=== PATIENT | male | born 1965 | race Caucasian/White ===

== ENCOUNTER 2020-08-05 13:42 | Inpatient (IN) | payer OTHER ==
[~2020-08-05] VITALS: Ht 175.3 cm; Wt 68.4 kg
[~2020-08-05 13:42] MED LIST: ACCUNEB SO1.25 MG/1; BENZTROPINE MES1 MG PO; INVEGA6 MG PO; PREDNISONE 10 M10 MG PO; VISTARIL 25 MG25 M1 PO; [UNRECOGNIZED DRUG - OTHER] PO
[2020-08-05] MEDS ORDERED: PROAIR HFA8.5 GM INH (17:01)
[2020-08-05] MEDS ORDERED: PREDNISONE 20 M20 MG PO (17:02)
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
[2020-08-06 07:37] LABS: ABSOLUTE NEUTROPHILS 4.7 thou/uL (1.4-8.2); BASOPHILS 0.6 % (0.0-2.0); EOSINOPHILS 0.8 % (0.0-3.0); HEMATOCRIT 38.3 % (42.0-52.0); HEMOGLOBIN 12.8 gm/dL (14.0-18.0); LYMPHOCYTES 14.9 % (24.0-44.0); MCH 31.3 pg (26.0-34.0); MCHC 33.5 g/dL (28.0-37.0); MCV 93.7 fL (80.0-100.0); MONOCYTES 11.4 % (1.0-8.0); PLATELET COUNT 528 thou/uL (150-400); POLYS 72.3 % (36.0-66.0); RBC 4.09 mil/uL (4.50-6.00); RDW 13.8 % (10.5-14.5); WBC 6.5 thou/uL (4.0-11.0)
[2020-08-06 07:51] LABS: ALBUMIN 3.2 g/dL (3.4-5.0); CALCIUM 9.1 mg/dL (8.5-10.1); CREATININE 0.7 mg/dL (0.7-1.3); POTASSIUM 4.5 mmol/L (3.5-5.1); TOTAL BILIRUBIN 0.4 mg/dL (0.2-1.0); TOTAL PROTEIN 7.5 g/dL (6.4-8.2)
[2020-08-06 15:11] LABS: FOLIC ACID 11.8 ng/mL (8.6-58.9)
--- NOTE | 2020-08-06 18:09 | NUR ---
0700 ASSUMED CARE OF PATIENT, PATIENT IN BED AT THAT TIME. PATIENT AMB WITH STEADY GAIT. PATIENT CALM ON INITIAL ASSESSMENT. BRUISING AND STITCHES NOTED TO FACE. NO C/O PAIN. PATIENT DENIED SI/HI, NO DEPRESSION, NO ANXIETY. 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 PATIENT FOUND DIGGING IN TRASH, PATIENT ASKED NOT TO DO SO. PATIENT REFUSING MEDICATION AND STATES "I WILL NOT TAKE THAT MEDICATION. PATIENT ALSO REFUSING NICOTINE PATCH YET ASKING TO GO OUT TO SMOKE. WHEN ASKING QUESTIONS TO PATIENT, PATIENT CHANGES THE SUBJECT WITH A FLIGHT OF IDEAS UNRELATED TO THE QUESTION. WILL CONTINUE TO OBSERVE
[2020-08-06 19:48] VITALS: BP 137/87
--- NOTE | 2020-08-07 03:48 | NUR ---
Assumed care on 08/06/20 @ 1900. [facility] Drawing on provided coloring pages, also on paper sacks and the name tag outside of his room. Refused P.O. Tylenol for face and head pain. Refused topical Bactraicin ointment. Refused P.O. Haldol 2mg, however this nurse provided it in apple juice which he accepted. @ 03:45, came out of his room asking for food. Explained the time frame for breakfast, @ 0800, at which point he used obscenities to express himself, stomped back to his room, slammed the door and pounded on the chavira of his room. Patient was able to calm himself and as of this writing has de-escalated and modified his own behavior.
[2020-08-07 09:31] VITALS: BP 124/74
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
[2020-08-07 19:46] VITALS: BP 109/74
--- NOTE | 2020-08-07 20:33 | NUR ---
0700 ASSUMED CARE OF PATIENT, PATIENT IN BED AT THAT TIME. PATIENT ABM WITH STEADY GAIT. PATIENT ATE 100% OF ALL MEALS. PACES HALLS AT TIMES. DENIED SI/HI. NO C/O PAIN. REFUSES PO MEDICATION. PATIENT WAS UPSET TAKING OF SHIRT STMPING TO ROOM YELLING AND CURSING X 2. 1935 RECIEVED ORDER FOR IM MED HALDOL 5MG AND ATIVAN 1 MG IM GIVEN AT 1500 WITH SECURITY STANDING BY. IM GIVEN TO LEFT DELTOID. PATIENT CONTINUED TO REFUSE PO MED.
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
[2020-08-08 01:06] LABS: HIV ANTIBODY Non Reactive (Non Reactive)
[2020-08-08 04:38] VITALS: BP 109/74
--- NOTE | 2020-08-08 05:02 | NUR ---
Assumed care on 08/07/20 @ 1900, alternately in bed and ambulating ad juan josé throughout the mileu. In bed when meds were offered. Refused P.O. Haldol and refused to allow bactracin to be applied to facial scar. Continued to sleep overnight. Bed in low position, will continue to montior as per unit protocol for safety and comfort.
[2020-08-08 09:27] VITALS: BP 112/64
[2020-08-08 10:41] VITALS: BP 112/64
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
[2020-08-08 19:40] VITALS: BP 128/83
[2020-08-08 20:06] LABS: SYPHILIS AB Non Reactive (Non Reactive)
[2020-08-08 22:43] VITALS: BP 128/83
--- NOTE | 2020-08-09 01:39 | NUR ---
Assumed care on 08/08/20 @ 1900, moves about with a steady gait. Alternately walks the halls and uses coloring pencils to draw on adult coloring pages. Cooperated with assessment and compliant with medications. Relayed the information that he wanted to put his topical antibiotic ointment on his scar himself. Provided him with a glove and allowed him to do so. A&Ox2 with confusion flight of ideas and difficulty focusing. ABD normoactive bowel sounds, BM today, HRRR, reports that he has a pacemaker. Wheezing noted to lower right field, course breath sounds present in the left field. Seated in a halima chair in his room sleeping with eyes closed, respirations even and unlabored.
[2020-08-09 09:09] VITALS: BP 130/83
[2020-08-09 19:43] VITALS: BP 124/71
--- NOTE | 2020-08-10 03:35 | NUR ---
PATIENT HAD A FLAT AFFECT, POOR EYE CONTACT,POOR GROOMING AND HYGIENE. PATIENT ENCOURAGED FLUIDS. PATIENT REFUSED CREAM ON HIS LEFT EYE. PATIENT TOOK HS MEDS. PATIENT IN BED ASLEEP AT THIS TIME BREATHING REGULAR AND UNLABOURED.
[2020-08-10 08:57] VITALS: BP 127/69
[2020-08-10 19:19] VITALS: BP 138/70
--- NOTE | 2020-08-10 19:36 | NUR ---
0700 ASSUMED CARE OF PATIENT, PATIENT UP AMB IN SAN AT THAT TIME. PATIENT CALM AND COOPERATIVE. NO C/O PAIN. PATIENT EATS 100% OF ALL MEALS. MEDICATIONS TAKEN WHOLE WITHOUT DIFFICULTY. BS ACTIVE, LS WHEEZING NOTED.
--- NOTE | 2020-08-11 04:30 | NUR ---
PT AMBULATING INDEPENDENTLY AND IS TOLERATING WELL. DENIES PAIN. FREQUENT OBSERVATION.
[2020-08-11 08:57] VITALS: BP 108/71
--- NOTE | 2020-08-11 17:45 | NUR ---
SW met with Pt today to gather information about his family. Pt provided SW with some family information. Pt was able to provide a brother's name and number, Carlo Lopez . HIs mother's name Татьяна Cuellar. Pt stated his mother was still living but did not know her address or phone number. Pt also provided the name of his adult sons, Ryne Lopze, Dionisio Lopez, Jessica Reeves, and Landry Lopez. He provide the address of [address] [place] [address] as an address for his children. Pt did not have a phone number for any of his children. Sw did call the number for Pt's brother, Carlo Lopez. YENIFER called several times each time a woman answering the phone. When SW would ask for Carlo the woman would act as though she could not here SW talking and repeat " Hello". SW called another time and stated" I am not a solicitor, I am from a hospital calling for Carlo". The woman hung up the phone. YENIFER called back and a man answered the phone stating " I am not intrested, you have the wrong number". SW did not call back. YENIFER will continue to follow
--- NOTE | 2020-08-11 18:43 | NUR ---
0700 ASSUMED CARE OF PATIENT, PATIENT IN DAYROOM DRINKING COFFEE AT THAT TIME. PATIENT CALM AND COOPERATIVE. MEDICATIONS TAKEN WHOLE. SLIGHT WHEEZING NOTED. C/O SORE THROAT, LOZENGE GIVEN. RT HERE TO GIVE PRN BREATHING TREATMENT PATIENT STATES "ITS GIVING ME A WILKES". NO OUT BURST TODAY NOTED. PATIENT ONLY RECIEVED PARTIAL TX. PATIENT C/O WILKES WILL GIVE TYLENOL.
[2020-08-11 19:34] VITALS: BP 139/74
--- NOTE | 2020-08-12 02:28 | NUR ---
ASSESSED PT EVENING MEDS GIVEN WHOLE WITH WATER. REFUSED TYELNOL STATED 'WILL SLEEP IT OFF" UP AD LU. PT RESTING WELL IN BED. NO FURTHER SIGNS OF DISCOMFORT WILL CONT TO MONITOR.
[2020-08-12 08:59] VITALS: BP 136/80
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
[2020-08-12 20:00] VITALS: BP 155/78
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
--- NOTE | 2020-08-13 11:10 | NUR ---
Followup: remains on [facility] unit. On soft diet, double portions. Tolerates well, eats 100% of meals consistently. Had 2 different wt measurements of 149 vs 143 lb over 1 day. Will follow trends. Low nutrition risk
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
--- NOTE | 2020-08-13 19:15 | NUR ---
PATIENT HAS BEEN UP, AND OUT ON THE UNIT, AMBULATE WITH STEADY GAIT. PATIENT TOOK ALL MEDICATION WHOLE WITHOUT DIFFICULTY, HE IS EATING MEALS, AND DRINKING FLUID WELL, HE EATS DOUBLE PORTION SOFT DIET. PATIENT DENIES SUICIDAL/HOMICIDAL IDEATION, HE RATES BOTH DEPRESSION/ANXIETY 8/10. PATIENT DENIES HAVING PHYSICAL PAIN. LEFT FACIAL SURGICAL INCISION SITE LOOKS CLEAN, AND DRY, NO S&S OF INFECTION NOTED, AREA HEALING WELL. REDNESS NOTED TO LEFT EYE. NO AGITATION, OR IRRITABLE BEHAVIOR NOTED AT THIS TIME. AFFECT IS FLAT/BLUNTED, MOOD IS DEPRESSION. NO SIGN OF ACUTE DISTRESS NOTED AT THIS TIME, WILL MONITOR FOR SAFETY.
[2020-08-14 04:17] VITALS: BP 137/64
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
[2020-08-14 09:40] VITALS: BP 126/65
[2020-08-14 09:46] VITALS: BP 126/65
--- NOTE | 2020-08-14 09:57 | NUR ---
Assumed pt care at 0700. pt was alert and oriented x4. pt took meds whole. Assessments completed VSS. pt ambulates with a steady gait. denies si/hi, denies pain at this time. There is no sign of acute distress noted upon assessments. pt was calm and co-operative with care. No behaviors noted at this time. will continue to monitor pt.
[2020-08-14 19:15] VITALS: BP 131/71
--- NOTE | 2020-08-15 00:52 | NUR ---
Alert and orientated x 4, calm and cooperative when initially assessed. Denies SI/HI. States he is concerned about his 4 sons--has not had recent contact d/t being homeless. Also states he is tired. When entered room for evening meds he became irritable and angry raising voice stating he was not on medication when he came and he can't understand why he is on medication now. States haldol is making his legs jump and keeping him awake t/o night. Got up from bed angrily and then stated he needed to pee. Told that haldol was an antipsychotic. He went to bathroom and complied with washing his hands to apply bacitracin to face. Then took haldol and went back to bed. Breath sounds clear. Reg HR auscultated. Color pink with brisk capillary refill and palpable peripheral pulses. Independent with voiding, yellow urine per toilet. Active bowel sounds over soft, flat abdomen. States he had BM earlier this AM. Healing laceration below L eye, no s/o infection. Bacitracin applied by pt. Fading bruising on face. Currently sleeping without s/o distress.
[2020-08-15 02:15] VITALS: BP 150/97
[2020-08-15 09:54] VITALS: BP 115/63
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
[2020-08-15 10:12] VITALS: BP 115/63
--- NOTE | 2020-08-15 14:24 | NUR ---
08/11/20 Dr. Fisher emailed Administration concerning guardianship on the Pt. 08/11/20 recieved and email from Danya Abdi with attached questionairre to complete on Pt. 08/12/20 TELMA emailed completed questionairre back to Danya 08/14/20 recieved petition via email from Danya 08/15/20 TELMA reviewed petition,scanned and emailed copy to Danya. Along with Pt's psychiatric evaluation. placed copy in the record. Telma will continue to follow up
[2020-08-15 19:32] VITALS: BP 139/79
--- NOTE | 2020-08-15 23:12 | NUR ---
Alert and orientated X4. Calm, cooperative and compliant. States he has no pain, denies WILKES. States he is concerned about sons. Breath sounds clear. Reg HR auscultated. Color pink with brisk capillary refill and palpable peripheral pulses. Independent with voiding, yellow urine per toilet. States he had BM this AM. Active bowel sounds over soft, rounded abdomen. Ambulating with regular, steady gait. Currently sleeping without s/o distress.
[2020-08-16 08:26] VITALS: BP 133/87
[2020-08-16 09:59] VITALS: BP 133/87
--- NOTE | 2020-08-16 12:09 | NUR ---
Assumed pt care at 0700. Pt was alert and oriented x4. Took meds whole, no difficulty noted. Assessments completed, vss. Ambulates with a steady gait. Denies si/hi. There is no c/o pain at this time. There is no sign of acute distress noted upon assessments. pt is calm and co-operative with care. At this time pt is eating lunch. Will continue to Monitor pt.
[2020-08-16 20:00] VITALS: BP 142/85
--- NOTE | 2020-08-16 23:13 | NUR ---
PT SLEEPING IN ROOM UPON ARRIVAL TO SHIFT. PT DID GO TO DAY ROOM AND ASKED FOR ICE CREAM AND PROVIDED. PT COMPLIANT WITH MEDS. PT DID LATER IN THE EVENING GO TO HIS ROOM AND WAS YELLING LOUDLY IN HIS ROOM THAT HIS SISTER IN LAW WAS TAKING SOMETHING AND THAT SOMEONE ELSE WAS TO LEAVE. PT DID STOP YELLING ON HIS OWN AND WAS LAYING IN HIS BED WITH HIS EYES CLOSED HE WAS SCREAMING. PT PLACED HIMSELF ON THE FLOOR MATTRESS PROVIDED TO SLEEP. STEADY GAIT. HUNTER SKIN.
[2020-08-17 09:43] VITALS: BP 122/80
[2020-08-17 12:27] VITALS: BP 122/80
--- NOTE | 2020-08-17 12:49 | NUR ---
ASSUMED CARE AT 0700 THIS MORNING. PT. PACING A BOUT IN THE DINING ROOM. HE IS PLEASANT. HE TOOK HIS MORNING MEDICATIONS WITHOUT PROBLEMS NOTED. HE WAS NOTED SLEEPING IN HIS ROOM ON A MAT ON THE FLOOR. AFTER LUNCH HE WAS IN HIS ROOM YELLING. WHEN THIS RN APPROACHED HIM HE STATED, "MY SON CHRISTINE JUST WALKED BY BUT HE ISN'T TALKING TO ME." WHEN THIS RN ASKED HIM NOT TO YELL, HE STATED, "FUCK THIS [facility], FUCK THIS PLACE, FUCK THE DR." HE WAS CONTINUING TO YELL. MELIA MCDERMOTT NP CAME IN TO SEE WHAT THE COMOTION WAS ABOUT. THIS RN GOT A PRN HALDOL 5 MG PO AND GAVE TO HIM FOR AGITATION. MELIA MCDERMOTT NP WROTE AN ORDER FOR IM IF HE COULD NOT CALM DOWN. NO FURTHER AGITATION, YELLING NOTED TO THIS POINT NOTED. WILL CONTINUE TO MONITOR.
[2020-08-17 19:20] VITALS: BP 124/70
[2020-08-17 20:45] VITALS: BP 124/70
--- NOTE | 2020-08-18 02:43 | NUR ---
PATIENT HAS BEEN IN HIS ROOM MOST OF NIGHT. HE STARTED OUT LAYING ON A MATTRESS ON THE FLOOR. HE DENIES PAIN. HE TOOK HIS HS MED OF HALDOL 7.5MG PO WITH WATER WITHOUT ISSUE. PATIENT STILL HAS HEALING LACERATION AROUND LEFT EYE. NO SIGNS OF INFECTION NOTED. PATIENT LATER CAME OUT QUICKLY TO CHECK THE TIME IN DAYROOM AND HURRIED BACK TO BED. HE CALLED OUT A COUPLE OF TIMES BUT HE WAS WANTING HIS BED ADJUSTED. HELPED PATIENT POSITION HIMSELF IN BED AND PATIENT IS BACK TO BED. HE IS IRITABLE AND IMPULSIVE. ROUTINE ROUNDS TO ASSESS SAFETY AND STATUS OF PATIENT.
[2020-08-18 10:30] VITALS: BP 130/69
[2020-08-18 15:06] VITALS: BP 130/69
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
[2020-08-18 19:48] VITALS: BP 152/69
[2020-08-18 20:20] VITALS: BP 152/69
--- NOTE | 2020-08-19 02:10 | NUR ---
PATIENT HAS BEEN IN ROOM ALL NIGHT EXCEPT FOR COMING OUT FOR ICE WATER AT 0200. PATIENT HAD FIRST DOSE OF SEROQUEL AT 1800 08/18. HE WAS FINE WHEN I ASSESSED HIM AT 193. WHEN I TOOK HIS HS MEDS IN AROUND 2044 PATIENT AWOKE AND BEGAN SWEATING PERFUSELY. HIS TEMP WAS 98.7. RECHECKED LATER WHEN THIS HAPPENED AGAIN AND IT WAS 97.0. PATIENT DENIED PAIN OR CHEST PAIN. PULSE WAS GOOD AT 88. PATIENT HAS CHANGED HIS SHIRT TWICE TONIGHT D/T DRENCHING IT IN SWEAT. THE ROOM TEMP WAS NORMAL WHEN THIS HAPPENED THE FIRST TIME. THEN WHEN IT HAPPENED AGAIN AROUND 199 THE ROOM DID FEEL WARM BUT THE PATIENT BECAME VERY UPSET AND AGITATED WHEN I WENT TO CHECK THE TEMP OR TRY TO LOWER THE TEMP. IT IS PROBABLY 75 DEGREES IN THERE NOW. PATIENT BELIEVES IT IS THE SEROQUEL. I CALLED AND NOTIFIED DR BARON WHEN THIS WAS FIRST NOTICED BEFORE I GAVE HIM HIS HS MEDS. INSTRUCTED TO CONTINUE TO MONITOR AND ASSESS FOR ANY NEW FINDINGS. NO NEW FINDINGS. PATIENT IS RESTING IN BED WITH HIS EYES CLOSED AT THIS TIME. BED IN LOW POSITION. ROUTINE ROUNDS TO ASSESS SAFETY AND STATUS OF PATIENT. DENIES PAIN. DENIES SI/HI/AVH AT THIS TIME. CONTINUING TO MONITOR.
--- NOTE | 2020-08-19 02:30 | NUR ---
NOTED THAT AT 2100 WHEN MEDS GIVEN TO PATIENT THAT HIS LEFT EYE BLOOD VESSELS WERE BROKEN AND EYE VERY RED. NO DRAINAGE. DENIES DISCOMFORT. LEFT EYE LACERATION IS HEALING AND FRAME AND SCRAP CRUSHER. NO SIGNS OF INFECTION. NO REDNESS OR DRAINAGE.
--- NOTE | 2020-08-19 09:26 | NUR ---
0700 ASSUME CARE OF PATIENT, PATIENT IN DAYROOM AT THAT TIME. AMB WITH STEADY GAIT, TAKES MEDICATION WHOLE WITHOUT DIFFICULTY. C/O MEDICATION HE IS TAKING STATING "I DID NOT TAKE MEDICATION BEFORE AND DON'T WANT TO ANYMORE". PATIENT MUMBLING TO SELF HE IS UPSET ABOUT BEING HERE. PATIENT DOES NOT WANT TO TALK ABOUT IT AT THIS MOMENT. VS 128/78, 89, 17, 97.5, 97%. NO C/O PAIN, LS CLEAR, BS ACTIVE. PATIENT DOES NOT ATTEND GROUP THIS AM. RESTING IN BED AT THIS TIME.
[2020-08-19 09:43] VITALS: BP 128/78
--- NOTE | 2020-08-19 11:04 | NUR ---
Followup: eating very well, 100% all meals and wts are stable. Low nutrition risk
--- NOTE | 2020-08-19 15:51 | NUR ---
MEDICAL CENTER MANAGER met with pt 1;1 late this morning to touch base on how he is doing, and filling his unstructured time on unit as he does not attend groups. Pt expressed frustration stemming from feeling "claustrophobic" on locked unit. He explains further that he has never taken medication and feels as if he is having poor side effects from what he is taking here. MEDICAL CENTER MANAGER and pt spoke about positive coping skills, structuring time, and mainting some social activity while on unit. Pt still frustrated but excited when offered radio to his room for afternoon. Pt assisted MEDICAL CENTER MANAGER in tuning radio to "rock n roll". Throughout afternoon pt could be heard whistling and singing along to music and expresses content having a radio in his room.
--- NOTE | 2020-08-19 16:54 | NUR ---
YENIFER met with Pt in his room concerning his behaviors. Pt stated he was upset about the medications he was on. Pt stated the medications are making him "dehydrated and thirsty". Pt stated the medications are " messing with my head" and he feels "clusterphobic" being on the unit. Pt believes he was only suppose to go to a medical unit and not a psychiatric unit. SW attempted tp explain to the Pt his dx, medications, and guardianship. Pt began to become visibly upset, getting out of the lying position, pacing the floor, raising his voice, yelling at times. SW assured the Pt DR. Cheng would be told his concerns. Pt evenually ended the conversation by walking out of the room saying " Ok bye". Dr. Cheng and YENIFER later spoke with the Pt together. Pt continued to be aggitated. Pt informed about the dementia dx. Pt stated, " what is that, like alzheimers, I aint got no alzheimers". " I aint on no meth or drinking, I don't do that stuff, that why I don't like [place] everything is about meth meth meth". Pt continued to escalate and ramble. Pt got up again and left the room. SW will continue to follow.
[2020-08-19 19:36] VITALS: BP 129/80
[2020-08-19 20:52] VITALS: BP 143/76
--- NOTE | 2020-08-20 05:37 | NUR ---
08-19-20 CARE TRANSFERRED 1899. LATER PT AAOX4, VSS RR EVEN AND NONLABORED ON RA. PT DENIES PAIN AND SI/HI. PT HAS BEEN CALM AND COOPERATIVE. ZERO S/S OF ACUTE DISTRESS, PT WILL CONTINUE TO BE MONITOR PER [facility] PROTOCOL.
--- NOTE | 2020-08-20 10:46 | NUR ---
Pt knocked on PROFESSOR OF VOICE office door requesting to listen to radio, "for at least 5 minutes." Alberto was accepting of encouragement to participate in 0900 RT group before he would be given opportunity to listen to radio in his room. He did not attend group. During tx team this AM, Alberto's lack of socialization and presence in milieu/groups was discussed, along with using radio as motivation and reward for improved participation. Following meeting, pt again requested radio. Alberto and PROFESSOR OF VOICE discussed a goal of attending at minimum one group per day for the remainder of the week, before he would be given the opportunity to listen to radio. Alberto was accepting of this, asked for reminders of when group times were, and agreed he would attend one per day.
--- NOTE | 2020-08-20 15:48 | NUR ---
YENIFER recieved an email from Danya Abdi with the notice of hearing attached. Guardianship hearing has been scheduled for 09/30/2020 @9895. The Pt was provided a copy and YENIFER told Pt the date and time of the hearing. A copy was placed in the chart.
--- NOTE | 2020-08-20 16:31 | NUR ---
0700 ASSUMED CARE OF PATIENT, PATIENT UP IN DAYROOM AT THAT TIME. PATIENT CALM AND COOPERATIVE. VS 129/76, 87, 18, 97.4, 98%. PATIENT OUT TO DAYROOM FOR BREAKFAST THEN RETURNS TO ROOM SPENDING MOST OF THE TIME IN ROOM. PATIENT ENJOYING MUSIC IN ROOM. MEDICATION TAKEN WHOLE WITHOUT DIFFICULTY. 1620 PATIENT ASKS VICE PRESIDENT OF MARKETING TO DIAL A PHONE NUMBER AND COMMUNICATES WITH HIS OLDER BROTHER APOLINAR [phone]. PATIENT ASKS VICE PRESIDENT OF MARKETING TO GIVE PHONE NUMBER FROM HERE SO BROTHER CAN CALL HIM. VICE PRESIDENT OF MARKETING SPOKE WITH APOLINAR AND PER PATIENTS REQUEST PATIENTS CODE NUMBER GIVEN TO BROTHER. PATIENT HAPPY TALKING WITH BROTHER IN ROOM AT THIS TIME.
[2020-08-20 19:29] VITALS: BP 124/62
--- NOTE | 2020-08-21 06:40 | NUR ---
08-21-20 CARE TRANSFERRED 1899. LATER PT RESTING IN BUNK SUPINE WITH EYES CLOSED, AAOX4, VSS, RR EVEN AND NONLABORED ON RA. PT DENIES PAIN AND SI/HI. PT HAS REMAINED CALM AND COOPERATIVE THROUGHOUT SHIFT. ZERO S/S OF ACUTE DISTRESS NOTED, PT WILL CONTINUE TO BE MONITOR PER [facility] PROTOCOL.
[2020-08-21 07:58] VITALS: BP 132/80
[2020-08-21 19:38] VITALS: BP 129/67
--- NOTE | 2020-08-22 04:33 | NUR ---
Assumed care on 08/21/20 @ 19:15, in room in bed at that time, medications and assessment provided, at first pt fussed about taking medications, then when explained what each of (2meds) purpose was for, he angrily sat up and said he would take them. Swollowed meds whole. Swelling to left eye is improving. Returned to sleep. Will continue to monitor for safety and comfort as per unit protocol.
[2020-08-22 09:37] VITALS: BP 115/75
[2020-08-22 12:59] VITALS: BP 115/75
--- NOTE | 2020-08-22 13:06 | NUR ---
ASSUMED CARE AT 0700 THIS MORNING. PT. COMES OUT FOR MEALS, THEN RETREATS TO HIS ROOM AND IS SECLUSIVE. HE CONTINUES TO VERBALIZE SOME VISUAL HALLUCINATIONS. UP TO THIS MOMENT IN TIME, HE HAS NOT HAD ANY OUTBURSTS. HE CONTINUES TO SEEK COFFEE NUMBEROUS TIMES THROUGHOUT THE DAY. HE TOOK HIS MEDICATIONS WITHOUT PROBLEMS NOTED. WILL CONTINUE TO MONITOR.
[2020-08-22 19:40] VITALS: BP 127/79
[2020-08-23 01:29] VITALS: BP 127/79
--- NOTE | 2020-08-23 06:27 | NUR ---
08/22/201914 ISOLATES IN HIS ROOM. WALKS OUT TO THE DAY ROOM WITH HIS SHIRT OFF ASKING FOR A CLEAN SHIRT. COMPLIANT WITH MEDICATION ADMINISTRATION. TYLENOL 650 MG PROVIDED FOR GENERAL PAIN AND HEADACHE 10/02. RETIRED TO SLEEP @ AN EARLY NOC. SLEPT 9 HOURS OVERNIGHT.
[2020-08-23 09:27] VITALS: BP 108/65
[2020-08-23 09:55] VITALS: BP 108/65
[2020-08-23 10:10] VITALS: BP 108/65
[2020-08-23 11:33] LABS: GLYCOHEMOGLOBIN (HGB A1C) 5.4
--- NOTE | 2020-08-23 12:14 | NUR ---
1215 RESUMMED CARE FROM OVERNIGHT SHIFT THIS AM, PATIENT IN ROOM LYING IN BED QUIET. PATIENT ALERT ORIENTED TIMES 4 PATIENT CALM QUIET COOPERATIVE I LET PATIENT KNOW HE NEEDED TO PARTICIPATE IN GROUPS. I TOLD HIM IF HE WAS NOT COMPLIANT HIS ROOM WOULD BE LOCKED. PATIENTS ABDOMEN SOFT BOWEL SOUNDS PATIENTS LUNGS CLEAR. PATIENT DENIES SI/HI/AH/VH AT PRESENT PATIENTS AFFECT IS FLAT. WILL CONTINUE TO MONITOR PATIENT FOR SAFETY AND BEHAVIORS.
[2020-08-23 19:57] VITALS: BP 139/72
--- NOTE | 2020-08-24 04:32 | NUR ---
WITHDRAWN TO ROOM THIS PM-IS NOT VISIBLE IN DAYROOM AT SHIFT CHANGE AND REFUSED TO COME OUT WHEN PROMPTED FOR HS SNACK-MINIMALLY VERBAL DURING PM ASSESSMENT/1'1 INTERACTION -SAT UP IN BED-TOOK MEDS AND PROMPTLY LAID BACK DOWN AND CLOSED EYES-DENIES PAIN WHEN ASKED-REFUSES PHYSICAL ASSESSMENT STATING "NOT NOW" WILL CONTINUE TO MONITOR
[2020-08-24 10:04] VITALS: BP 121/69
--- NOTE | 2020-08-24 18:38 | NUR ---
0700 ASSUMED CARE OF PATIENT, PATIENT AMB IN SAN AT THAT TIME. PATIENT CALM AND COOPERATIVE IN AM. PATIENT DOES NOT PARTICIPATE IN GROUPS TODAY. ASKS FOR FOOD MULTIPLE TIMES THROUGHOUT THE DAY. STARTS TO GET MAD AFTER ASKING FOR TRAYS BEING HELD FOR OTHER PATIENT. PATIENT YELLS "IF YOUR GONNA THROW IT AWAY CAN JUST HAVE IT". RECOVERY ENGINEER EXPLAINED TO PT AND PATIENT WALKS AWAY UPSET. ISOLATES SELF IN ROOM MOST OF THE TIME AND WALKS / RUNS AROUND SQUARE OF NURSES STATION. PATIENT STARTS YELLING FOR A CIGARETTE, RECOVERY ENGINEER OFFERS NICTINE GUM AND PATIENT AGREES GUM GIVEN AT 1826.
[2020-08-24 18:59] VITALS: BP 130/84
--- NOTE | 2020-08-25 00:51 | NUR ---
PATIENT WAS CALM AND PLEASANT AT BEGINNING OF SHIFT. HE FELL ASLEEP IN HIS BED AROUND 2030. HE TOOK HIS MEDS WHOLE WITH WATER AND NO DIFFICULTY. THEN AROUND 0030 PATIENT AWOKE AND CAME OUT TO DINING ROOM TO GET WATER. HE WAS MUMBLING UNDER HIS BREATH AND STATING THAT THERE IS A WAR GOING ON. HE GOT IRRITATED WHEN I TOLD HIM NOT TO TAKE A NEW CUP AND FILL IT WITH WATER AND DRINK IT AND THEN SIT IT BACK DOWN BY THE WATER DISPENSER. I ASKED HIM TO TAKE HIS CUP WITH HIM OR THROW IT AWAY. EXPLAINED I DIDN'T WANT OTHERS TO JAVASCRIPT DEVELOPER HIS USED CUPS AND DRINK FROM THEM. HE WENT BACK TO HIS ROOM. HE LAID DOWN ON A MAT ON THE FLOOR AND FELL BACK TO SLEEP. DENIES PAIN/SI/HI/AVH. HE IS A/0X3-4. ROUTINE ROUNDS TO ASSESS SAFETY AND STATUS OF PATIENT.
--- NOTE | 2020-08-25 09:27 | NUR ---
0700 ASSUMED CARE OF PATIENT, PATIENT UP AMB IN SAN. PATIENT AMB WITH STEADY GAIT. PATIENT NOTED PACING IN DAYROOM AND IN SAN. PATIENT MUMBLING TO SELF STATING "IF YOU JUST GET ME A CAB AND TAKE ME HOME I WILL BE FINE". AFTER BREAKFAST PATIENT TO ROOM AND LAYS DOWN. REC THERAPIST TO ROOM TO INVITE PATIENT TO GROUP, PATIENT STARTS YELLING AND CURSING HOW HE WANTS OUT OF HERE. PATIENT TO DAYROOM STOMPING. PATIENT DISRUPTIVE IN DAYROOM DURING GROUP AND ASKED TO LEAVE. PATIENT TO SAN AND SITS ON FLOOR INFRONT OF ROOM. WILL CONTINUE TO OBSERVE
[2020-08-25 09:30] VITALS: BP 135/80
[2020-08-25 20:10] VITALS: BP 133/79
[2020-08-25 21:42] VITALS: BP 133/79
--- NOTE | 2020-08-26 01:26 | NUR ---
PATIENT IN BED RELAXING. NO SIGN OF DISCOMFORT NOTED. TOOK HIS SCHEDULED MEDS BUT REFUSED HIS BACITRACIN OINTMENT TO FACIAL INCISON. NURSE EDUCATE ON THE IMPORTANCE OF OINTMENT. HE DENIES PAINS. BS ACTIVE X 4 QUAD. BED IN A LOW POSITION NO SI/ AVH/ NOTED. VITAL SIGN ARE WITHIN NORMAL RANGE. CALM AND CO-OPERATIVE AND ROUTINE ROUNDS ARE ONGOING. CONTINUE TO MONITOR.
[2020-08-26 09:08] VITALS: BP 125/80
--- NOTE | 2020-08-26 11:20 | NUR ---
Nutrition followup: Pt continues to eat very well, 90-100% of meals. Weights relatively stable, 144-149#. BM 08/25. Did not visit as pt had just recieved IM shot due to behaviors. Low nutrition risk.
--- NOTE | 2020-08-26 15:42 | NUR ---
RT Progress Note- Over the last week Alberto and RT team have set goal of improving participation as pt had not been in attendance to any recreational therapy group since his admission. Alberto showed moderate level of attendance, but continues to avoid active participation. Alberto often offers physical complaints (WILKES, dizziness, etc) as to why he is unable to participate. On days of improved group attendance, pt has been given the radio to utilize in his room. Alberto has displayed some anger outburts as a result of required attendance. PATTERN GATER will continue to encourage attendance and improvement of participation throughout the next week.
--- NOTE | 2020-08-26 17:34 | NUR ---
0700 ASSUMED CARE OF PATIENT, PATIENT UP AMB IN SAN. PATIENT PACING SAN AND DAYROOM. ATE 100% OF BREAKFAST. MEDICATION TAKEN WHOLE WITHOUT DIFFICULTY. DENIES PAIN, LEFT EYES SWOLLEN. PATIENT REFUSES TO USE OINTMENT TO EYE. DENIES SI/HI, LS CLEAR, BS ACTIVE. PATIENT IN GROUP THIS AM, GET UP AND LEAVES GROUP. PATIENT FOUND LYING IN SAN AND ASKED TO GET UP. PATIENT PACES SAN FOR A FEW MIN THEN TO DAYROOM AND LAYS UNDER TABLE. PATIENT ASKED AGAIN TO GET UP FROM FLOOR, PATIENT GETS UP AND YELLS AND GOES TO ROOM POUNDING ON DOOR. SECURITY CALLED DR BARON ON FLOOR AND ORDERS IM MEDICATION. SECURITY, DR BARON AND STAFF AT PATIENT SIDE. DIRECTOR WEB ADMINISTERED IM INJECTION OF 20MG OF GEODON TO RIGHT DELTOID AT 1012 PATIENT CALM AND COOPERATIVE AT THAT TIME. PATIENT TO ROOM AND LAYS DOWN. PATIENT CALM THE REST OF THE DAY. WILL CONTINUE TO OBSERVE.
--- NOTE | 2020-08-26 18:00 | NUR ---
YENIFER recieved a VM from Bill Strange, . In the VM Bill stated he has an appointment to come see the Pt on 09/04/2020 @1300. YENIFER returned the call leaving a VM to confirm date and time.
[2020-08-26 19:47] VITALS: BP 127/80
[2020-08-26 19:53] VITALS: BP 127/80
--- NOTE | 2020-08-27 05:00 | NUR ---
Assumed care on 08/26/20 @ 1915, A&Ox3-4. Noted to be cooperative with care his evening. HRRR. Lungs CTA bilat. ABD N x 4Q. Ambulating with a steady gait, Santacruz score of 15. Denies SI/HI, Denies AH/VH. Allowed bactracin to be applied to healing scar on left zygomatic process. Compliant with medication administration, and pleasant affect noted. Will continue to monitor as per unit protocol for safety and comfort.
[2020-08-27 08:00] VITALS: BP 130/78
--- NOTE | 2020-08-27 10:28 | NUR ---
PATIENT CARE ASSUMED AT 0700 - UP IN DINING SAN. AFFECT FLAT AND UNEMOTIONAL AND MOOD DETACHED. ADVISED PATIENT IMPORTANCE TO PARTICIPATE IN GROUPS AND TOW BAR DRIVER ANGER OUTBURSTS. APOLOGIZED TO THIS INFORMATION DIRECTOR FOR BEHAVIOR EXHIBITED YESTERDAY. EXPLAINED THAT ADHERRANCE TO PROTOCOLS AND GUIDELINES IS FOR HIS BENEFIT. SEEMED RESTLESS THIS MORNING - PACING AROUND UNIT - QUESTIONED EXTRA TRAY OF FOOD - STATES MEALS NOT FILLING AND CONSTANTLY HUNGRY. ASKED FOR ICE CREAM AND EXPLAINED THAT WOULD ESTRADA HIS REQUEST. EXPLAINED THAT APPROPRIATE BEHAVIOR CRITICAL AND STAFF TRYING TO WORK WITH HIM - HELPING HIM FIND PLACEMENT - HE AGREED TO REACHING OUT THIS STAFF MEMBER WHEN FEELING LOSS OF CONTROL AND ANGER. COMPLIANT WITH MEDICATIONS AND OINTMENT PLACED ON HIS LEFT CHEEK BELOW EYE. STATED NO DISCOMFORT - LUNGS CLEAR ON AUSCULTATION, HEART RATE STRONG AND STEADY AND SKIN INTACT - WARM AND DRY. NOTED EASILY AGITATED WHEN NEEDS OR WANTS NOT MET BUT COMMUNICATED MY CONCERNS WITH THIS BEHAVIOR AND AGREED TO SUBDUE HIS OUTBURSTS. AFTER GROUP LAID DOWN ON HIS BED AND TOOK A NAP.
--- NOTE | 2020-08-27 15:01 | NUR ---
D/T erratic behavior, room searched for meds/contraband per team request. Nothing found.
[2020-08-27 19:35] VITALS: BP 119/88
[2020-08-27 23:56] VITALS: BP 119/88
--- NOTE | 2020-08-28 00:48 | NUR ---
Assumed care on 08/26/20 @ 1915. Ambulating with a steady gait and a Santacruz score of 15. Lying in bed upon assessment wearing black athletic shoes. HRRR, Lungs CTA bilat, ABD N BS x4Q. Continent of B&B. Cooperative with assessment and cares. Denies depression, anxiety, SI/HI AH/VH. Returned to bed after taking meds. Went to sleep early in the evening. Bed in low position, will continue to monitor for safety and comfort.
[2020-08-28 07:31] VITALS: BP 127/75
--- NOTE | 2020-08-28 19:25 | NUR ---
0700 ASSUMED CARE OF PATIENT, PATIENT UP AMB IN SAN WITH STEADY GAIT. PATIENT CALM AND COOPERATIVE TODAY. NO C/O PAIN DENIES SI/HI. LS CLEAR, BS ACTIVE. VS STABLE. MEDICATIONS TAKEN WHOLE. PATIENT SPENT MOST OF HIS TIME IN ROOM. DID NOT ATTEND GROUPS TODAY.
[2020-08-28 19:49] VITALS: BP 127/73
[2020-08-28 21:55] VITALS: BP 127/73
--- NOTE | 2020-08-28 22:11 | NUR ---
HYPERVERBAL WITH PRESSURED SPEECH DURING PM MED PASS,1;PM ASSESSMENT. WHEN APPROACHED WAS SITTING IN BED IN ROOM-UPON STAFF ENTERING ROOM IMMEDIATLY BEGINS A LONG RAMBLING DIALOGUE -STOPPING AFTER 5-10 MINUTES TO FALL BACK DRAMATICALLY AGAINST PILLOW STATING "OH I JUST GET SO SHORT OF BREATH AND EXHAUSTED TALKING ABOUT IT"CONVERSATION CIRCUMSTANTIAL-EXPRESSING ANGER WITH FAMILY,HOSPITALS, DOCTORS ETC FOR "FORCING ME TO TAKE MEDICINE WHEN I DON'T NEED IT" NOTED TO BE TAKING SHALLOW RAPID BREATHS DURING CONVERSATION AND STATES SHORT OF BREATH "ALL THE TIME"PREOCCUPIED WITH MEDICATION IN PARTICULAR LITHIUM AND SPOKE FOR APPROX 15 MINUTES ABOUT WHY SHE DID NOT WANT TO TAKE AND SIDE EFFECTS THAT SHE IS [id number] ABOUT. DID TAKE ALL HS MEDS WITH THE EXCEPTION OF LITHIUM
--- NOTE | 2020-08-28 22:41 | NUR ---
PATIENT IN BED, ALERT AND ORIENTED, ABLE TO VERBALIZE NEEDS.HE DENIES,SI HI, AVH AND NO DISCOMFORT NOTED AT THIS TIME. HE GETS OUT OF BED TWICE TO GET SOME WATER AND SANCK WAS OFFERED ONCE.LUNGS ARE CLEARED ON AUSCULTATION. NO CONCERN NOTED. TOLERATED HIS MEDS WHOLE.BED IN LOW POSITION AND LOCK, CALL LIGHT AT REACH AND AREA IS FREE OF OBATACLES. PT SPOKE TO HIS BROTHER THIS SHIFT.CONTINUE CARE AND MONITOR PER ORDER. .
[2020-08-29 10:38] VITALS: BP 135/69
[2020-08-29 14:26] VITALS: BP 135/69
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
[2020-08-29 19:47] VITALS: BP 130/74
--- NOTE | 2020-08-30 00:40 | NUR ---
APPROACHED IN ROOM WITH HS MEDICATIONS AT APPROX 2019-REFUSES PHYSICAL ASSESSMENT. DID RESPOND ABRUPTLY TO 1-2 QUESTIONS ASKED FOR ASSESSMENT BEFORE ROLING OVER AND STATING "I DON'T KNOW I ANSWERED ALL THIS STUFF ALREADY"WHEN GIVEN HS MEDICATION LOOKS AT CUP OF MEDS AND BEGAN TO YELL LOUDLY "I'M NOT TAKING THIS MUCH-I TAKE TOO MANY GODDAMM PILLS ALREADY. DID TAKE HALDOL/PRAZOSIN BUT REFUSES VISTARIL. WILL CONTINUE TO MONITOR
[2020-08-30 09:25] VITALS: BP 139/71
[2020-08-30 09:43] LABS: ABSOLUTE NEUTROPHILS 4.9 thou/uL (1.4-8.2); BASOPHILS 0.9 % (0.0-2.0); EOSINOPHILS 2.5 % (0.0-3.0); HEMATOCRIT 39.3 % (42.0-52.0); HEMOGLOBIN 13.1 gm/dL (14.0-18.0); LYMPHOCYTES 15.6 % (24.0-44.0); MCH 31.4 pg (26.0-34.0); MCHC 33.3 g/dL (28.0-37.0); MCV 94.5 fL (80.0-100.0); PLATELET COUNT 304 thou/uL (150-400); RBC 4.16 mil/uL (4.50-6.00); RDW 14.4 % (10.5-14.5); WBC 6.8 thou/uL (4.0-11.0)
[2020-08-30 09:52] LABS: CALCIUM 8.9 mg/dL (8.5-10.1); CREATININE 0.8 mg/dL (0.7-1.3); POTASSIUM 4.1 mmol/L (3.5-5.1)
[2020-08-30 10:09] VITALS: BP 139/71
--- NOTE | 2020-08-30 12:02 | NUR ---
1200 RESUMMED CARE FROM OVERNIGHT SHIFT THIS AM, PATIENT IN ROOM RESTING QUIETLY. PATIENT ALERT ORIENTED TIMES 4 PATIENT ATE BREAKFAST TOOK MEDICATION WITHOUT INCIDENCE. PATIENTS ABDOMEN SOFT BOWEL SOUNDS PRESENT PATIENTS LUNGS CLEAR. PATIENT COMES TO GROUP BUT DOES NOT PARTICIPATE IN GROUP AND I REMINDED HIM OF HIS ROOM LOCKOUT. PATIENT DENIES SI/HI/AH/VH AT PRESENT PATIENT HAS NOT DISPLAYED ANY BEHAVIORS THIS SHIFT. WILL CONTINUE TO MONITOR PATIENT FOR SAFETY AND BEHAVIORS.
--- NOTE | 2020-08-30 16:41 | NUR ---
Nurse Sydnee asked SW to meetwith Pt concerning getting labs drawn. SW met with the Pt in his room. SW talked to Pt about the need for labs. Pt started to get upset asking " Why am I on the psych meds, I don't need them". SW encouraged Pt to allow labs to be taken. Pt eventually allowed the tech to draw blood. Pt them asked for ice cream. SW informe he had to wait until group was over. Pt was able to wait calmly until group finished to get snack. YENIFER will continue to follow
--- NOTE | 2020-08-30 22:02 | NUR ---
PT ISOLATING IN ROOM. PT SLEEPING IN HIS CLOTHES. POOR EYE CONTACT WHEN TALKING WITH NURSE. PT STATED HE IS NOT SUPPOSED TO TAKE ANY PSYCHOTIC MEDICATIONS. PT WAS LOUD AND IRRITABLE WHEN EXPRESSING THIS. PT HOWEVER DID TAKE ALL OF HIS MEDICATIONS. PT REMAINED IN HIS ROOM ALL NIGHT.
[2020-08-31 09:19] VITALS: BP 110/77
--- NOTE | 2020-08-31 15:53 | NUR ---
ASSUMED CARE AT 0710. PT FREQUENTLY WALKS BACK AND FORTH FROM ROOM TO DAY ROOM AND BACK. PT COMES TO DAY ROOM FOR MEALS AND MEDICATION AND SNACKS BUT GOES BACK TO ROOM SOON HE IS FINISHED. PT DOES NOT SOCIALIZE WITH OTHER PATIENTS AND SPEAKS VERY FEW WORDS TO NURSING. PT SLEEPS ALOT IN BETWEEN MEALS. PT'S APPEARANCE IS VERY DISHEVELED AND REMAINS IN HIS STREET CLOTHES.
[2020-08-31 19:36] VITALS: BP 136/72
[2020-08-31 21:28] VITALS: BP 136/72
--- NOTE | 2020-09-01 02:39 | NUR ---
PATINET IN BED RESTING WITH EYES CLOSED. ALERT AND ORIENTED. DENIES ANY PAINS,SI,AVH,HI. MOOD IS PLEASANT AND CALM. AMBULATES WITHOUT ANY DIFFICULTY. BS ACTIVE X 4 QUAD. NO OEDEMA NOTED TO BLE AND ARMS.LUNGS ARE DIMINISHED. HE SCREAMED THAT MEDICATION CAUSED HIM DRYNESS OF THE MOUTH AND REQUESTED FOR WATER.HE TOOK HIS MEDS WHOLE WITHOUT ANY ISSUES AND WENT BACK TO SLEEP. NURSE PROVIDED PATIENT WITH A PITCHER OF WATER AT BED SIDE. BED IS IN LOW POSITON. NO SKIN ISSUES OR WOUNDS NOTED THIS SHIFT. HE IS CONTINENT OF BOWEL AND BLADDER WITH LBM ON 08/31/20. CONTINUE CARE AND MONITOR.
[2020-09-01 10:08] VITALS: BP 126/68
[2020-09-01 14:46] VITALS: BP 126/68
[2020-09-01 19:54] VITALS: BP 134/85
--- NOTE | 2020-09-01 19:57 | NUR ---
Assumed pt care at 0700. pt was alert and oriented x4. pt was calm and co-operative. took meds whole, no difficulty noted. Denies si/hi denies pain. Assessments completed, vss. No si/hi of acute distress upon assessments. AMbulates with a steady gait. WILL CONTINUE TO MONITOR PT.
[2020-09-01 22:00] VITALS: BP 134/85
--- NOTE | 2020-09-02 06:19 | NUR ---
PATIENT CARE WAS ASSUMED AT 1900. PT CALM, ALERT AND ORIENTED RESTING IN BED.HE DENIES ANY DISCOMFORT, SI/AVH,HI. VSS AND NO SOA NOTED.SCHEDULED HS MEDICATIONS WERE GIVEN WITHOUT ANY ISSUES. NO SKIN ISSUES NOTED. BS ACTIVE X ABD SOFT AND NONE TENDER.PT IS CONTINENT OF BOWEL AND BLADDER. BED IN LOW POSITION. PT AMBULATES WITHOUT ANY ISSUES. STAFF CONTINUE TO ROUND Q12 MINUTES.CONTINUE CARE
--- NOTE | 2020-09-02 09:43 | NUR ---
Assumed pt care at 0700. pt was alert and oriented x4. pt took meds whole, no difficulty. Assessments completed, vss. pt Denies si/hi. There is no c/o pain at this time. Ambulates with a steady gait. No sign of acute distress noted upon assessments. pt refused to participate in group. At approximately 0920 pt was lying down on the hallway. DR Fisher was notified. Pt went into the day room and lay on the floor again. At this time pt is currently laying on the floor in the day room. Will continue to monitor.
[2020-09-02 10:00] VITALS: BP 119/77
--- NOTE | 2020-09-02 10:53 | NUR ---
Nutrition followup: pt continues on [facility] unit eating 80-100% of meals, double portions on soft diet, missing dentition. Weights stable within 144-149#. On vitamin D supplementation for deficiency. A1C WNL. Followup weekly.
[2020-09-02 13:23] VITALS: BP 119/77
[2020-09-02 19:30] VITALS: BP 134/71
[2020-09-02 21:00] VITALS: BP 134/71
--- NOTE | 2020-09-03 01:16 | NUR ---
PT CARE WAS RESUME [id number]. HE IS ALERT AND ORINTED AND ABLE TO VERBALIZE PAINS. HE IS SLEEPING IN BED WITHOUT ANY ISSUE NOTED AT THIS TIME. HE TOOK HIS MEDICATIONS WHOLE WITHOUT ANY ISSUE. NO SIGN OF PAINS AND DISCOMFORT NOTED. HE DENIES, SI, AVH, HI. BS ACTIVE X4 QUAD. ABD IS SOFT AND NONE TENDER. BED IS LOCK AND IN A LOW POSITION. PT IS VERY CALM AT THIS TIME. CONTINUE CARE AND MONITOR.
[2020-09-03 07:50] VITALS: BP 109/70
--- NOTE | 2020-09-03 09:45 | NUR ---
PATIENT WAS UP, AND OUT ON THE UNIT, WENT BACK TO BED AFTER BREAKAST. MORNING MEDICATIOM GIVEN AT BED SIDE, WELL TOLERATED. PATIENT DECLILNE MORNING GROUP, BECAME VERY ANGRY, HE I ON ROOM LOCK-OUT DURING GROUP/MEALS. HE BECAME LOUD DUE TO STAFF ENCOURAGING HIM TO ATTENT GROUP. PATIENT DECIDED TO SIT ON THE FLOOR OUSIDE HIS ROOM, LATER GOT UP, WITH LOTS OF ENCOURAGEMENT FROM THIS BYPRODUCTS SUPERVISOR, AND SECURITY JUN , HE STATES "I BENNIE'T GO TO GROUP, IT MESSESS WITH MY BRAIN. THE NOISE, I BENNIE'T STAND THE NOISE". HE DID GOT OFF THE FLOOR, SAT IN DAY ROOM FOR A LITTELE WHILE, THEN GOT UP, PACED AROUND THE NURSES STATION, AND COMES BACK TO SIT. PATIENT DENIES SUICIDAL/HOMICIDAL IDEATION, HE DENIES DEPRESSION, AND ANXIETY, DENIES AUDITORY/VISUAL HALLUCINATION. PATIENT RATES GENERALIZED PAIN 4/10, DECLINE TO TAKE MEDICATION FOR PAIN "I DON'T WANT NOTHING". AFFECT IS SAD/FLAT, MOOD IS ANGRY. NO SIGN OF ACUTE DISTRESS NOTED AT THIS TIME, WILL CONTINUE TO ENOUCRAGE GROUP THEAPY, AND MONITOR FOR SAFETY.
--- NOTE | 2020-09-03 10:56 | NUR ---
RT Progress Note- Alberto continues to isolate to his room each day. At this time he remains compliant with his group/meal room lockout and presents to the day room when requested to do so. He does not participate however and most often chooses to lay on the floor while present. He also is observed to take very brisk walks frequently during times when he is asked to participate socially. Alberto's frustration tolerance continues to be poor. 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 ENTRY ANALYST presented to pt's room while pt was lying in his bed. Pt appeared annoyed that ENTRY ANALYST had come to talk to him and was short and guarded during discussion. ENTRY ANALYST explained roll of recreational therapist and that RT's use leisure as a source of coping rather than medication (pt has stated in the past that he chooses not to disclose information in fear that he will be given more medication in return.) It was explained to him the discussion had in tx team and suggested that pt come up with activities he would like to do so that a plan could be created in place of group attendance. Pt stated, "socializing has never been my thing. It makes me nervous. I don't want people to see me." When pressed to identify activities he would enjoy and asked to take a look at RT supply cabinet, pt became increasingly irritated, sat up, and walked out of room in a rick while mumbling to himself.
[2020-09-03 19:33] VITALS: BP 130/83
[2020-09-03 22:51] VITALS: BP 130/83
--- NOTE | 2020-09-04 00:32 | NUR ---
Assumed care on 09/03/20 @ 1900, in bed, awakened to voice and awake, oriented x3-4. Cooperated with assessment, HRRR, Lungs CTA bilat. Healing scar on left zygomatic process noted. Compliant with medication administration. Denies SI/HI. Denies anxiety and depression. Returned to bed, bed in low position, will conitnue to monitor as per unit protocol for safety and comfort.
[2020-09-04 09:00] VITALS: BP 125/78
[2020-09-04 12:27] VITALS: BP 125/78
--- NOTE | 2020-09-04 19:39 | NUR ---
Assumed pt care at 0700. pt was alert and oriented x4. pt was calm and co-operative with care. pt took meds whole, no difficulty noted. pt denies si/hi, denies pain. Ambulates with a steady gait. Assessments completed, vss. No sign of acute distress noted upon assessments. PT REFUSED his [address] Fisher notified. Meds administered as ordered. Will continue to monitor.
[2020-09-04 20:15] VITALS: BP 118/66
--- NOTE | 2020-09-05 02:31 | NUR ---
APPROACHED IN ROOM AT APPROX 2044 FOR HS MEDS AND PM ASSESSMENT. UPON ENTRY TO ROOM IS NOTED TO BE RESTING QUIETLY WITH EYES CLOSED-EASILY AROUSABLE TO VERBAL STIMULI. SAT UP AND TOOK MEDS IMMEDIATLY LAYING BACK DOWN TURNING AWAY FROM STAFF. DYSPHORIC MOOD. DENIES SI/SH/HI. DENIES PHYSICAL PAIN/DISCOMFORT. INITALLY REFUSED TO ALLOW PHYSICAL EXAM IE HEART,LUNG,BOWEL SOUNDS- BUT STAFF P[REPARING TO EXIT ROOMS SITS UP AND STATES "OK JUST DO IT" BS ACTIVE X4. LUNGS DIMINISHED-DENIES SHORTNESS OF BREATH OR COUGH. ABDOMEN [id number] REPORTS BOWEL MOVEMENT "TODAY OR YESTERDAY"
[2020-09-05 09:11] VITALS: BP 117/73
--- NOTE | 2020-09-05 15:10 | NUR ---
Alert and orientated X4. Running in hallways this AM, slowed to a walk when asked. Marked hand tremors noted during assessment, ceased when talking with pt. Denies SI/HI. Significant swelling beneath L eye, no s/o infection. Walks with fast, regular gait. Breath sounds clear. Reg HR auscultated. Color pink with brisk capillary refill and palpable peripheral pulses. Independent with voiding, yellow urine observed in toilet. Active bowel sounds over soft, rounded abdomen. States he had BM early this AM. Laying in bed sleeping at start of both groups, asked to come out of his room and participate--complied. For afternoon group he returned immediately to his room stating that he had to use the bathroom. Went back to room several minutes later and he was lying on his side appearing to sleep. Again returned to group and he quickly complied. No s/o distress. As soon as group was over he requested his room to be unlocked so that he could lay back down.
[2020-09-05 16:45] VITALS: BP 137/81
[2020-09-05 19:47] VITALS: BP 125/84
--- NOTE | 2020-09-06 03:27 | NUR ---
APPROACHED IN ROOM AT 2030 WITH HS MEDICATIONS-HEARD YELLING LOUDLY APPROX 20 MINUTES EARLIER IN ROOM BUT WHEN STAFF ENTERED ROOM TO SEE WHAT WAS GOING ON WAS SITTING ON BED MUMBLIG TO SELF-HOLDING HEAD IN HANDS. DENIES PAIN/DISCOMFORT. DENIES A/V HALLUCINATIONS AND OFFERS NO RESPONSE TO INQUIRES TO WHY HE IS YELLING. DID TAKE HS MEDS WITHOUT RESISTANCE-TAKES OUT VISTARIL PRN FROM MED CUP STATING "THAT IS TOO MANY" OFFERED SNACK WITH HS MEDS BUT STATES "IT TOO LATE FOR THAT" DOES APPEAR UNKEMPT-OFFERED WASHCLOTHES AND TOWEL AT HS AND ASKED IF HE WOULD LIKE TO WASH UP AT SINK TO WHICH HE VEHEMENTLY STATES "NO"AND CLOSES THE DOOR TO ROOM.
[2020-09-06 09:01] VITALS: BP 111/69
--- NOTE | 2020-09-06 09:09 | NUR ---
ASSUMED CARE AT 0700 THIS MORNING. PT. UP IN DINING ROOM FOR BREAKFAST. PER HIS NORMAL, HE RETURNED TO HIS ROOM AFTER EATING. HE INITIALLY STATED HE WANTED THIS RN TO WAIT TO DO HER ASSESSMENT, BUT DID ALLOW ASSESSMENT. HE REMAINS TO HIMSELF, FLAT AFFECT. HE WAS COOPERATIVE WITH TAKING HIS MEDICATIONS. WILL CONTINUE TO MONITOR.
[2020-09-06 10:36] VITALS: BP 111/69
[2020-09-06 19:55] VITALS: BP 109/76
--- NOTE | 2020-09-07 04:15 | NUR ---
patient confused and forgetful. patient encouraged fluids.patient had a flat affect, poor eye contact, poor grooming and hygiene. patient in bed asleep at this time breathing regular and unlaboured.
[2020-09-07 07:40] VITALS: BP 120/78
[2020-09-07 08:00] VITALS: BP 127/85
[2020-09-07 08:39] VITALS: BP 112/73
[2020-09-07 08:40] VITALS: BP 112/73
--- NOTE | 2020-09-07 09:56 | NUR ---
At approximately 0720 pt heard yelling from his room which is not unusual. This speech writer went to see what was wrong and found pt laying on floor next to his bed. He stated he had pain in his left foot. He was able to lift himself to a sitting position on the bed. When asked to take off his shoes he began yelling again but then independently took his shoe off without any s/o distress and quieted down. Per Yvette Xiong RN he stated he had pain of 4 and top of foot was slightly pink upon assessment. 1 hr post assessment pt was laying quietly in bed and appeared to be sleeping. Woke up to take VS and do assessment. Stated pain was in L great toe joint and ranked it an 8.5. No s/o edema, erythema or injury. Pt. alert and orientated X4, pupils equal and briskly reactive. Pt. homeless and pending guardianship hearing. Continues to ambulate around unit without s/o distress.
[2020-09-07 13:01] VITALS: BP 127/85
--- NOTE | 2020-09-07 13:52 | NUR ---
PATIENT UP AND PACING HALLWAYS AT CHANGE OF SHIFT. SHORTLY AFTERWARDS PATIENT STARTED YELLING AND HAVING A [place]EL[place]OWN. WHEN APPROACHED WAS LOUD AND EMOTIONAL AND UPSET ABOUT ALL THE MEDICATIONS HE HAD BEEN TAKING. STATED HELD AGAINST HIS WILL AND WANTED OUT. STAFF HAS BEEN FORCING HIM TO TAKE MEDICAITONS AND HE NEVER TOOK PILLS WHEN FREE. PATIENT REASSURED AND THIS BRAKE LINER WAS ABLE TO CALM PATIENT WITH EMPATHY AND DE-ESCALATION TACTICS. SHORT TIME AFTERWARDS YELLING CAME ONCE AGAIN FROM HIS ROOM. ANOTHER STAFF MEMBER WENT TO ASSIST HIM AND FOUND HIM ON FLOOR BESIDE BED. CLAIMS FELL. RECOLLECTION OF EVENTS THAT LED TO IT HAS CHANGED - AT FIRST STATED FOOT HURT AND HE WENT DOWN. STATED SUPERIOR DORSAL OF LEFT FOOT HURT. ASSESSED AND NO BRUISING EVIDENT. THEN EXPLAINED TO ANOTHER NURSE IT WAS HIS LARGE TOE LATERAL SIDE OF FOOT THAT HURT AND TOOK HIM DOWN. STAFF ASSESSED AND ADVISED DR. RAMIREZ - AFTERWARDS PATIENT WAS UP AND PACING THE HALLWAYS ONCE AGAIN. PAIN APPEARED TO SUBSIDE AND NO FURTHER ISSUES STATED. PATIENT VITALS TAKEN AT TIME AND WERE STABLE. ALL DOCUMENTATIONON FALL PROCESSED IMMEDIATELY AND NOTE SUBMITTED. PATIENT HAS BEEN SPEED WALKING UP AND DOWN THE HALLWAYS THIS AFTERNOON. ADVISED TO SLOW DOWN. STATED WANTED TO ELEVATE IS OXYGEN - THOUGH LAST SET OF VITALS HAD OXGYEN AT 100. PATIENT STATED NO S/I OR H/I - NO HALLUCINATIONS OBSERVED OR REPORTED. WILL CONTINUE TO MONITOR PATIENT FOR SAFETY AND ANY BEHAVIORIAL CONCERNS AND ADDRESS ACCORDINGLY.
--- NOTE | 2020-09-07 16:53 | NUR ---
SW was able to meet with Pt 1 on . Pt stated he was in a good mood. Pt laid in his bed with his eyes closed smiling. SW talked to Pt about the guardianship and what it means. Pt stated he did not like being in the hospital. SW provided emotional support to Pt during this time. SW left the Pt's room and Pt was calm. Later the Pt became upset and started pacing and yelling in his room. Nurse Niharika was able to talk to the Pt. Pt calmed down. YENIFER offered the Pt the radio in his room to assit with further deescalation. Pt was allowed the radio until dinner arrived.
--- NOTE | 2020-09-07 19:22 | NUR ---
PATIENT CARE ASSUMED AT 0700 - WAS VERY RESTLESS AND EASILY AGITATED - STARTED YELLING SHORTLY AFTER CHANGE OF SHIFT. " I DO NOT WANT TO BE HERE, TAKING ALL THESE PILLS." I NEVER TAKE MEDICATION." WAS EXTREMELY ANIMATED ABOUT IT AND TOOK SOMETIME TO REASSURE AND CALM PATIENT DOWN. SHORTLY AFTERWARDS WHILE SAID ALTERATION SPECIALIST WAS PULLING MEDICATIONS PATIENT STARTED HIS RANTING ONCE AGAIN. STAFF RAN INTO HIS ROOM AND FOUND PATIENT LYING ON FLOOR ON SIDE OF BED. CLAIMS HAD LEFT FOOT PAIN BY HIS LARGE TOE AND CAUSED HIM TO LOOSE HIS BALANCE. SAT PATIENT ON SIDE OF BED AND ASSESSED FOR INJURY - CLAIMS WAS SORE BUT TOLERABLE. SHORTLY AFTER WARDS WAS UP ONCE AGAIN PACING THE HALLWAYS. PATIENT HAD ONE OTHER EPISODE OF YELLING OUT. WAS SLEEPING SOUNDLY AND SPORATICALLY AWOKE YELLING ONCE AGAIN. SEEMS TO GAIN THE ATTENTION HE NEEDS AND REINFORCEMENT ON APPROPRIATE BEHAVIOR IS CRUCIAL WHEN THIS BEHAVIOR ERUPTS. DAY WENT ON HE MAINTAINED CALMNESS BUT ISOLATED FREQUENTLY TO HIS ROOM - REFUSES TO PARTICIPATE IN GROUPS AND NEEDS ENCOURAGEMENT. PATIENT REFUSED MORNING MEDICATIONS OF HALDOL AND CALCIUM SUPPLEMENTS. ALL DOCUMENTATION COMPLETED ON FALL PROTOCOLS AND NURSE NOTE WRITTEN. VITALS HAVE BEEN STABLE ALL DAY. NO FURTHER REPORTS OF PAIN WHEN ASSESSED DURING THE DAY. PATIENT GIVNE BOOM BOX AND CALMED PATIENT - CONTINUED TO MONITOR PATIENT FOR SAFETY AND BEHAVIORAL CONCERNS AND ADDRESS ACCORDINGLY.
[2020-09-07 19:34] VITALS: BP 152/67
--- NOTE | 2020-09-08 03:41 | NUR ---
patient aox3 make needs known. patient is up at juan josé.patient denied pain or discomfort. patient was calm and cooperative with meds and care. patient had a flat affect, poor eye contact, poor grooming and hygiene. patient in bed asleep at this time breathing regular and unlaboured.
[2020-09-08 09:26] VITALS: BP 134/77
--- NOTE | 2020-09-08 12:21 | NUR ---
PT ALERT AND ORIENTED TIMES THREE. PT AGITATED THIS MORNING YELLING. REFUSED MORNING MEDICATIONS. PT TOLERATES MEALS. PT HAS LITTLE INTERACTIONS WITH STAFF AND NO INTERACTIONS WITH PEERS. PT DID NOT ATTEND ANY GROUPS THIS SHIFT. LIDA CONTINUE TO MONITOR.
[2020-09-08 20:12] VITALS: BP 141/79
[2020-09-08 21:00] VITALS: BP 141/79
--- NOTE | 2020-09-09 05:46 | NUR ---
Pt's A/OX4,VSS. Denied pain on assessment, VSS. Pt took HS meds with one prompt only even though stated "I'm tired of these meds" Pt later observed with some shaking movements,diaphoretic, VSS,Blood sugar WNL. Pt also reported he almost fell again in room,fall precautions implemented and pt encouraged to call and wait for help;though not doing so. notified of incident and ordered Ativan 2mg X1,pt refused to take it stated "I'm not taking any more dope" Pt has been resting in bed for a while calmly. Will continue to monitor pt.
[2020-09-09 09:07] VITALS: BP 111/66
[2020-09-09 09:20] VITALS: BP 111/66
--- NOTE | 2020-09-09 09:31 | NUR ---
Assumed pt care at 0700. pt was alert and oriented x4. Assessments completed, vss. Pt took meds whole, no difficulty noted. Pt was inappropriate and rude during 9am nuclear medical technologist. Pt was refusing his meds at first. rfp writer told pt, rfp writer will notify the DR. pt stated give me the god damn medication. Denies si/hi. Denies pain at this time. Ambulates with a steady gait. Pt refused participating in 9am group. At 0916 pt was seen sitting on the hallway. DR Fisher was notified. At this time pt is sitting by the [address] window, looking at out side. WILL CONTINUE TO MONITOR.
[2020-09-09 10:36] LABS: ABSOLUTE NEUTROPHILS 5.6 thou/uL (1.4-8.2); BASOPHILS 0.4 % (0.0-2.0); EOSINOPHILS 1.7 % (0.0-3.0); HEMATOCRIT 36.9 % (42.0-52.0); HEMOGLOBIN 12.1 gm/dL (14.0-18.0); LYMPHOCYTES 13.7 % (24.0-44.0); MCH 30.4 pg (26.0-34.0); MCHC 32.7 g/dL (28.0-37.0); MCV 93.1 fL (80.0-100.0); MONOCYTES 7.5 % (1.0-8.0); PLATELET COUNT 301 thou/uL (150-400); POLYS 76.7 % (36.0-66.0); RBC 3.96 mil/uL (4.50-6.00); RDW 14.1 % (10.5-14.5); WBC 7.3 thou/uL (4.0-11.0)
[2020-09-09 10:48] LABS: CALCIUM 8.9 mg/dL (8.5-10.1); CREATININE 0.8 mg/dL (0.7-1.3); POTASSIUM 3.8 mmol/L (3.5-5.1)
--- NOTE | 2020-09-09 11:19 | NUR ---
Aprx 0950 during morning recreation therapy group, pt had requested to listen to "Shannon Nolan". This was played for him and pt sat with a smile on his face. He then was observed to stand up, stretch for an extended period of time, then bend forward in a hunched manor with drool hanging from his mouth. Pt face was red. WORD PROCESSING SUPERVISOR x2 by his side asked him if he was ok and directed him to sit in his chair. Pt did so. WORD PROCESSING SUPERVISOR took pts vital signs while group wrapped up. Pt had not yet spoke until this commercial loan underwriter stated that it was snack time to the group. Alberto immediately perked up, enthusiastically asking, "can I get some ice cream?!"
--- NOTE | 2020-09-09 11:44 | NUR ---
Nutrition followup: Pt continues to eat very well, 75-100% of meals with double portions on soft diet. 09/06 BM. Recent weight up 9# from previous, follow trends for accuracy, however, if weight gain continues will need to D/C double portions. Guardianship hearing 09/30. Low nutrition risk.
--- NOTE | 2020-09-09 18:06 | NUR ---
Nurse Randhawa called YENIFER to talk to the Pt about showering. Pt had refused when asked in the morning. Pt was walking laps on the floor when SW approached about a shower. SW informed Pt that he needed to take a shower. Pt immediately stated he would take a shower and was ready. Pt went to the shower room where the nurse assisted Pt. Pt insisted on taking a bath. He was allowed to bathe. While in the bathtub, Pt's bedsheets where changed and room cleaned by ADELFO.
[2020-09-09 20:00] VITALS: BP 128/77
[2020-09-09 20:48] VITALS: BP 128/77
--- NOTE | 2020-09-10 05:09 | NUR ---
Assumed pt care at 1900. A/OX4,VSS. Denies pain, SI/HI on assessment. Pt's up ad juan josé w/o episodes of staggering gait noted. Took HS meds with one prompt. Resting in bed quietly. Will continue to monitor pt.
[2020-09-10 05:29] VITALS: BP 153/95
[2020-09-10 06:15] VITALS: BP 141/86
[2020-09-10 09:43] VITALS: BP 140/89
--- NOTE | 2020-09-10 15:46 | NUR ---
RT Progress Note- Alberto has shown no change in participation.
[2020-09-10 19:16] VITALS: BP 112/73
--- NOTE | 2020-09-10 20:03 | NUR ---
Assumed pt care at 0700. pt was alert and oriented x4. calm and co-operative with care. Took meds whole, no difficulty noted. Assessments completed, vss. pt dENIES SI/HI. nO C/O pain THIS shift. PT IS AMBULATORY. PT PARTICIPATED IN ONE GROUP SESSION. aTE ALL MEALS. UA was collected and sent to the lab. pt had a CT scan of the head done this AM. sALINE LOCK WAS INSERTED AT 1830. IV piggy bag Methylprednisolone started at 1848. Will continue to monitor pt.
--- NOTE | 2020-09-11 05:32 | NUR ---
09-10-20 CARE TRANSFERRED 0 OBSERVED PT SITTING IN DAY ROOM WITH FLUIDS RUNNING AT 100ML R. FOREARM, IV SITE C/D/P. PT AAOX4, VSS, RR EVEN AND NONLABORED ON RA. PT DENIES SI/HI AND PAIN, PT PRESENTS RESTLESS, BUT REMAINS CALM AND COOPEATIVE. SECOND MEDICATION HUNG PER HCP ORDERS, PT IV SITE C/D/P 10CC SALINE LOCKED AND WRAP WITH COBAN TO PROTECT SITE. PT BED WAS ADJUSTED FOR COMFORT. LATER PT CAME OUT OF ROOM, THEN WENT TO ONE KNEE, DIRECTOR MULTIMEDIA AT PT SIDE AND PT THEN ROLLED ONTO SIDE. PT WAS INSPECTED, NO IMPACT INJURY TO BE KNEE, PT DENIED PAIN, PT REPORTED FEELING RESTLESS. NOTED PT HAS SLIGHT TREMOR, RUE. PT B/P 102/65, P92, RR 18 EVEN AND NONLABORED ON RA. LATER PT SITTING ON BED, STATED THAT HE HE COULD NOT STOP SHAKING, PT WAS VOLUNTARY SHAKING LE AND UE, PT WAS ABLE TO STOP. PT PRESENTED ATTENTION SEEKING AND REQUESTED MEDICATION, POSSIBLE MEDICATION SEEKING. PRN WAS GIVEN AND RN SUPPORT SERVICES WAS ASSIGNED TO SIT WITH PT TIL SLEEP. ZERO S/S OF ACUTE DISTRESS NOTED, PT WILL CONTINUE TO BE MONITOR CLOSLY AND PER [facility] PROTOCOL.
[2020-09-11 06:03] LABS: CALCIUM 9.3 mg/dL (8.5-10.1); CREATININE 0.8 mg/dL (0.7-1.3); POTASSIUM 4.3 mmol/L (3.5-5.1)
[2020-09-11 10:18] VITALS: BP 111/71
--- NOTE | 2020-09-11 11:12 | NUR ---
Pt worked 1;1 with CANDY CUTTER HAND for apprx 15 minutes. Pt was excited to fold the unit's yellow tshirts and put them away in cabinet. While folding he shared stories of concerts he went to while living in [place]. 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 Alberto was able to maintain eye contact and spoke with excitement. After he completed this activity he worked with sports book writer to order lunch from alternative menu.
--- NOTE | 2020-09-11 14:35 | NUR ---
Assumed pt care at 0700. pt was alert and oriented x4. Assessments completed, vss. pt was calm and co-operative with care. Denies si/hi. Denies pain. Pt ambulates with unsteady gait. Took his meds whole no difficulty noted. Right Forearm IV saline lock was remove at 1150, per Dr Fisher order. NO redness noted at iv site. No sign of acute distress noted at this time. NO c/o pain. Will continue to monitor pt.
[2020-09-11 20:30] VITALS: BP 116/76
--- NOTE | 2020-09-12 05:44 | NUR ---
09-11-20 CARE TRANSFERRED 1899. LATER OBSERVED PT RESTING IN BED WITH EYES CLOSED, PT RESPONDED TO RN AND PRESENTED ARM FOR B/P, PT VSS, RR EVEN AND NONLABORED ON RA, WHEN ASKED ABOUT SI/HI PT SQUEEZED EYES SHUT AND REFUSED TO ANSWER QUESTIONS, NOTED PT IV DRESSING C/D. OBSERVED PT S/S OF PAIN OR SI/HI BEHAVIORS. ZERO S/S OF ACUTE DISTRESS NOTED, PT WILL CONTINUE TO BE MONITOR PER [facility] PROTOCOL.
[2020-09-12 09:58] VITALS: BP 129/84
--- NOTE | 2020-09-12 16:16 | NUR ---
Alert and orientated X4. Denies SI/HI. Large pocket of serous fluid below L eye. Denies pain. Breath sounds clear. Reg HR auscultated. Color pink with brisk capillary refill and palpable peripheral pulses. Independent with voiding. Active bowel sounds over soft, rounded abdomen. States he had BM this AM. Ambulating with regular, steady gait, rapid at times. No s/o distress.
[2020-09-12 20:06] VITALS: BP 130/83
--- NOTE | 2020-09-13 05:32 | NUR ---
09-12-20 CARE TRANSFERRED 1899 OBSERVED PT WALKING IN HALLWAY. LATER PT AAOX4, VSS, RR EVEN AND NONLABORED ON RA. PT DENIES PAIN AND SI/HI. SWELLING UNDER LEFT ORBITAL APPEARS SLIGHTLY ENLARGED FROM YESTEREDAY, NO REDNESS OR WARMTH FELT. PT HAS BEEN CALM AND COOPERATIVE. LATER ON ROUNDS, PT REPORTED HE WAS HAVING A DUCE, PT REPORTED LARGE BM; LATER PT BED WAS ADJUSTED FOR COMFORT. HAVE NOTED PT HAS MOMENTS OF RESTLESS. ZERO S/S OF ACUTE DISTRESS, PT WILL CONTINUE TO BE MONITOR PER [facility] PROTOCOL.
[2020-09-13 09:07] VITALS: BP 131/73
[2020-09-13 10:17] VITALS: BP 131/73
--- NOTE | 2020-09-13 10:45 | NUR ---
1045 RESUMMED CARE FROM OVERNIGHT SHIFT THIS AM, PATIENT IN ROOM RESTING QUIETLY. PATIENT DENEIS SI/HI/AH/VH AT PRESENT, PATIENT WAS STANDING IN THE SAN LOOKING BEWILDERED. I ASKED PATIENT IF HE WAS OKAY AND HE STATED HE WAS TRYING TO GET HISSELF TOGETHER SO HE WOULD NOT FALL. I NOTICED PAIIENT'S ARMS AND HANDS WERE SHAKING IF HE WAS HAVING TREMORS. PATIENT STATES HE THINKS IT IS BECAUSE OF HIS MEDICATION. PATIENTS ABDOMEN SOFT BOWEL SOUNDS PRESENT PATIENTS LUNGS CLEAR. PATIENT CALM COOPERATIVE PATIENT JUSTS WANT TO LEAVE THIS HOSPITAL. WILL CONTINUE TO MONITOR PATIENT FOR SAFETY AND BEHAVIORS.
[2020-09-13 20:31] VITALS: BP 101/62
[2020-09-13 22:15] VITALS: BP 101/62
--- NOTE | 2020-09-14 04:46 | NUR ---
Assumed care on 09/13/20 @ 19:15, in room, reports that he does not want to come to the dayroom for snacks. HRRR, Lungs CTA, ABD N x 4Q, reports last bm 09/13/20. Took meds whole, A&Ox4. Santacruz fall scale of 60. Will continue to monitor for safety and comfort.
[2020-09-14 05:05] LABS: CALCIUM 9.1 mg/dL (8.5-10.1); CREATININE 0.9 mg/dL (0.7-1.3); POTASSIUM 4.1 mmol/L (3.5-5.1)
[2020-09-14 06:00] VITALS: BP 119/74
[2020-09-14 07:05] VITALS: BP 133/88
--- NOTE | 2020-09-14 07:23 | NUR ---
PATIENT REFUSING TO SIT FOR HIS SAFETY, ALSO REFUSING TO LIE DOWN AND ALLOW THE BED ALARM TO BE SET. JUMPS UP OUT OF BED MULTIPLE TIMES AND RESTLESS AND AMBULATING AND RESISTING STAFF WHO ARE ATTEMPTING TO WALK WITH HIM FOR HIS SAFETY. PATIENT YELLING AND BECOMMING AGITATED ABOUT STAFF ATTEMPTING TO HAVE HIM SIT, LIE DOWN WITH BED ALARM ON AND AMBULATE WITH FOR HIS SAFETY. AT 0600 WHILE STANDING IN THE HALLWAY OUTSIDE THE NURSES STATION, HE THROWS HIS HANDS IN THE AIR AND SAYS, I'M FALLING AT WHICH TIME HE SITS ON THE FLOOR WITH HIS HANDS OVER HIS HEAD. WITNESSED TO HAVE NOT HIT HIS HEAD. MOVES ALL EXTREMITIES WITHIN NORMAL LIMITS, NO BUMPS NOTED TO HEAD. ORDER FROM DR. BARON FOR [facility] IM 15MG AND 1:1 WHILE AWAKE. UNABLE TO CONTACT [facility] CONTACT PATIENT HAS REQUESTED THAT NONE BE LISTED.
[2020-09-14 10:14] VITALS: BP 133/88
[2020-09-14 10:38] VITALS: BP 133/88
--- NOTE | 2020-09-14 12:40 | NUR ---
1130 RESUMMED CARE FROM OVERNIGHT SHIFT THIS AM, PATIENT IS IN DAY ROOM WITH ONE TO ONE STAFF SITTING QUIET. PATIENT ALERT AND ORIENTED TIMES 4 PATIENT HAD A FALL PRIOR TO THE START OF THE SHIFT. PATIENT DENIES SI/HI/AH/VH AT PRESENT PATIENTS ABDOMEN SOFT BOWEL SOUNDS PRESENT PATIENTS LUNGS CLEAR. PATIENT'S GAIT IS SOMETIMES UNSTEADY AND SEVERAL MEASURES HAVE BEEN ADDRESSED TO HELP PATIENT FROM FALLING. PATIENT AT TIMES PURPOSELY PLACES SELF ON THE FLOOR FOR ATTENTION. PATIENT WANTS TO LEAVE HERE AT 10:15 AM PATIENT IN DAY ROOM SITING IN CHAIR. PATIENT BEGAN ROCKING SIDE TO SIDE IN CHAIR AND WE ASKED PATIENT NOT TO DO THIS. PATIENT SHOUTED LEAVE ME ALONE AND PATIENT TIPPED CHAIR TOWARDS THE RIGHT OF HIM AND THE CHAIR FELL TO THE RIGHT SIDE. PATIENTS ONE TO ONE TRIED TO CATCH THE CHAIR BEFORE IT HIT THE FLOOR. PATIENT COMPLAINED ABOUT HIS RIGHT SHOULDER HURTING. HE WOULD NOT LET ME ACESESS HIM OR TAKE HIS VITALS DR BARON CAME TO DAY ROOM AND I TOLD HIM ABOUT WHAT HAPPENED TO THE PATIENT. HE ORDERED A STAT XRAY OF SHOULDER AND I CALLED SECURITY TO HELP ME ESCORT PATIENT DUE TO FLIGHT RISK. PATIENT COOPERATED WITH THE PROCEDURE PATIENT IS BECOMING VERY DIFFICULT WHEN REDIRECTING HIM NOT TO GET UP AND TRY TO WALK OFF. WE ARE ROTATING KERRI CHAIR WITH ALARM, WC WITH CHAIR ALARM AND BED ALARM. DR FERNANDO Childers NOTIFIED ABOUT PATIENTS INCIDENCE ORTHOPEDICS SUGGEST A SLING FOR PATIENTS ARM. WILL CONTINUE TO MONITOR PATIENT FOR SAFETY AND BEHAVIORS.
--- NOTE | 2020-09-14 15:19 | EKG ---
[address] [address] ELECTROCARDIOGRAM REPORT Name: CATY MAGANA Room #: [facility] ADM IN M.R.#: [id number] Admission: 08/06/20 Attend Phys: Eliot Fisher DO Discharge: Date of : 63 Report #: [id number] [facility] Test Date: 2020-09-13 Test Time: 15:13:00 Pat Name: CATY MAGANA Department: Room: [facility] Gender: M Manager Mac: LINCOLN : 1965 Requested By: Eliot Fisher Order Number: [id number] MD: Rosales Meredith Measurements Intervals Rankin Rate: 91 P: 71 NV: 177 QRS: 70 QRSD: 91 T: 69 QT: 385 QTc: 474 Interpretive Statements Sinus rhythm Minimal ST elevation, consider early repolarization No previous ECG available for comparison Electronically Signed On 09-14-2020 15:19:39 CDT by Rosales Meredith [email or web address] <ELECTRONICALLY SIGNED> By: Rosales Meredith MD, [facility] 09/14/20 1519 [id number] Rosales Meredith MD, FACC /EPI
[2020-09-14 19:44] VITALS: BP 132/75
--- NOTE | 2020-09-15 05:22 | NUR ---
Assumed care on 09/14/20 @ 19:15, On a 1:1 sitter to prevent patient from injuring himsel further. Has a clavicle FX, and stands and ambulates with out regard for his personal safety. PRN Haldol 5mg and Tylenol 650mg p.o. provided @ 19:29. Patient requested to go to bed, was assisted to bed and his 1:1 sitter stayed with him till he was asleep. Sitter is only with pt while awake. Urinal provided for patient. PO Seroquel 50mg and Ibuprophen 600 provided @ 0200 for Shoulder (clavicle) pain 11/01, an aching pain. Presents as anxious and had to be repeatedly redirected to remain seated and not walk franticly on the unit. After 15 minutes, pt was allowed to return to bed, sitter stayed with him until he slept.
[2020-09-15 09:28] VITALS: BP 105/67
[2020-09-15 10:09] VITALS: BP 105/67
--- NOTE | 2020-09-15 11:14 | NUR ---
1114 RESUMMED CARE FROM OVERNIGHT SHIFT THIS AM, PATIENT SITTING IN THE DAY ROOM QUIET WITH ONE TO ONE STAFF. PATIENT ATE BREAKFAST TOOK MEDICATION WITHOUT INCIDENCE. PATIENT DENIES SI/HI/AH/VH AT PRESENT HE STATES THAT HIS SHOULDER IS NOT HURTING THAT BAD. HE WAS GIVEN TYLENOL THIS AM FOR PAIN THIS AM. PATIENTS ABDOMEN SOFT BOWEL SOUNDS PRESENT PATIENTS LUNGS CLEAR. THE ORTHOPEDIC SURGEON DR DAMIAN CAME AND SAW PATIENT. HE TOLD PATIENT THAT SURGERY WOULD NOT BE NECESSARY; HE TOLD THE PATIENT TO NOT OVER USES THAT ARM. IT WILL MEND IT SELF LONG HE IS NOT BEING TO STRENOUS. PATIENT REFUSES TO WEAR SLING STATES IT MAKES THE SHOULDER FEEL WORSE. WILL CONTINUE TO MONITOR PATIENT FOR SAFETY AND BEHAVIORS.
--- NOTE | 2020-09-15 17:24 | NUR ---
YENIFER spoke with Pt concerning discharge. Pt stated he wanted to be discharged to [place]. However Pt did not have a place or address on where he wanted to be discharged. YENIFER talked to Pt about [facility] or [facility]. Pt refused both shelters. Pt stated he wanted to go to [place]. YENIFER informed Pt had to have services through [facility] and he currently does not. So [place] is not an option until he restablishes services with [facility]. YENIFER informed that a call will be made to secure a bed at [facility] and a taxi provided. Pt will d/c 09/16/2020 @ 1230 to [facility] via Taxi
[2020-09-15 19:56] VITALS: BP 137/82
[2020-09-15 21:13] VITALS: BP 137/82
--- NOTE | 2020-09-15 21:43 | NUR ---
PT CARE WAS RESUMED AT 1900 AND PT WAS IN BED RESTING. HE DENIES PAINS TO HIS RIGHT SHOULDER ON ASSESSMENT. ABLE TO VERBALIZE NEEDS. SCHEDULED MEDICATIONS WERE GIVEN AND PATENT TOOK MED WITHOUT ANY ISSUES. STAFF CONTINUED TO MONIOTR PT WHILE AWAKE IN BED. ALARM ON, BED IS LOCK AND LOW, NON SKID SOCKS ON, PT RESUSED NURSING ASSISTANCE WITH TRANSFER. PT IS HAPPY ABOUT GOING HOME [place]. lUNGS ARE CLEAR BS ACTIVE X 4 QUADS, ABD IS SOFT FLAT NONE TENDER. LAST BM IS TODAY. HE DENIES SI/AVH/ HI . CONTUNE TO MONITOR AND ASSESS.
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
[2020-09-16 09:59] VITALS: BP 141/75
[2020-09-16] MEDS ORDERED: TOPAMAX 25 MG T25 M1 PO (10:16)
[2020-09-16] MEDS ORDERED: MINIPRESS2 MG PO (10:16)
[2020-09-16] MEDS ORDERED: GEODON40 MG PO (10:17)
[2020-09-16] MEDS ORDERED: VITAMIN D3125 MC1 PO (10:18)
[2020-09-16 10:25] VITALS: BP 141/75
--- NOTE | 2020-09-16 12:42 | NUR ---
YENIFER spoke with Nurse Carranza at [facility]. The [facility] has an avalable bed for the Pt. Discharge information was faxed to [phone].
--- NOTE | 2020-09-16 12:43 | NUR ---
DISCHARGE INSTRUCTIONS INCLUDING MEDICATIONS AT TIME OF DC-DOSING AND POSSIBLE SIDE EFFECTS REVIEWED.DENIES SI/SH/HI. DOES REPORT SOME ANXIETY R/T DC BUT STATES HE IS "VERY HAPPY" TO GO. DISCHARGE MEDICATIONS OBTAINED FROM [facility] AND GIVEN TO PT AT TIME OF DC. LEFT UNIT VIA WC ACCOMPNIED BY FOOD ORDER DELIVERY RUNNER TO AWAITING TAXI. PERSONAL BELONGINGS SENT.
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
== END 2020-09-16 13:30 | disposition home or self-care (01) | DRG 885 ==
LOC: SBH
PROVIDERS: Internal Medicine; Nurse Practitioner Family; ADMIT Psychiatry & Neurology Psychiatry; ATTEND Psychiatry & Neurology Psychiatry
DX: F20.89 Other schizophrenia (principal); F01.51 Vascular dementia, unspecified severity, with behavioral disturbance; E87.0 Hyperosmolality and hypernatremia; G93.40 Encephalopathy, unspecified; E87.1 Hypo-osmolality and hyponatremia; J44.9 Chronic obstructive pulmonary disease, unspecified; R45.850 Homicidal ideations; F31.9 Bipolar disorder, unspecified; R58 Hemorrhage, not elsewhere classified; I10 Essential (primary) hypertension; G43.909 Migraine, unspecified, not intractable, without status migrainosus; R63.1 Polydipsia; F29 Unspecified psychosis not due to a substance or known physiological condition; Z88.8 Allergy status to other drugs, medicaments and biological substances
CPT/HCPCS: 10880

== ENCOUNTER 2020-08-05 16:49 | Emergency (ER) | payer OTHER ==
[~2020-08-05] VITALS: Ht 172.7 cm; Wt 62.6 kg
[2020-08-05] MEDS ORDERED: PROAIR HFA8.5 GM INH (17:01)
[2020-08-05] MEDS ORDERED: PREDNISONE 20 M20 MG PO (17:02)
[2020-08-06 05:30] VITALS: BP 129/78
== END 2020-08-06 05:31 | disposition admitted as inpatient to this hospital (09) ==
LOC: ER 16:49
PROVIDERS: Emergency Medicine
DX: F22 Delusional disorders (principal); R45.850 Homicidal ideations; J44.9 Chronic obstructive pulmonary disease, unspecified; F17.210 Nicotine dependence, cigarettes, uncomplicated; Z79.899 Other long term (current) drug therapy; Z88.8 Allergy status to other drugs, medicaments and biological substances; Z20.822 Contact with and (suspected) exposure to COVID-19